=== PATIENT | male | born 1955 | race Two or more races ===

== ENCOUNTER 2020-09-13 11:08 | Emergency (ER) | payer MEDICAID, MEDICARE, OTHER ==
[~2020-09-13] VITALS: Ht 167.6 cm; Wt 86.7 kg
--- NOTE | 2020-09-13 11:30 | NUR ---
LATE ENTRY FOR 1130: PT PRESENTS TO ED WITH GRADUAL ONSET VISUAL LOSS TO LEFT EYE X 2 WEEKS. PT'S PRIMARY LANGUAGE IS ARMENIAN, ASSEMBLY LINE UPHOLSTERER UTILIZED FOR ASSESSMENT. FAMILY AT BEDSIDE. PT IS A&O, RESPS EVEN AND UNLABORED, NEUROLOGICALLY INTACT WITH NO DEFICITS, NO DRIFT, BILATERAL GRASP EQUAL. UPON VISUAL ACUITY ASSESSMENT, PT UNABLE TO READ ANYTHING ON EYE CHART WITH LEFT EYE. EDMD PRATT NOTIFIED. AWAITING MD ASSESSMENT AND ORDERS AT THIS TIME.
[2020-09-13] MEDS ORDERED: PROPARACAINE OPHTH 0.5%, 15ML ONE (11:53)
--- NOTE | 2020-09-13 12:00 | NUR ---
AT BEDSIDE FOR ASSESSMENT.
[2020-09-13 12:25] LABS: BASOPHILS % (AUTO) 1 % (0-1); EOSINOPHILS % (AUTO) 1 % (1-7); LYMPHOCYTES % (AUTO) 28 % (22-44); MEAN CORPUSCULAR HGB CONC 32.5 g/dL (33.2-36.2); MEAN PLATELET VOLUME 7.8 fL (7.4-10.4); MONOCYTES % (AUTO) 8 % (2-9); NEUTROPHILS % (AUTO) 63 % (42-75); PLATELET COUNT 189 x10^3/uL (130-400); RED BLOOD COUNT 5.15 x10^6/uL (4.38-5.82); RED CELL DISTRIBUTION WIDTH 15.3 % (9.4-14.8)
[2020-09-13] MEDS ORDERED: PROPARACAINE OPHTH 0.5%, 15ML EACHEYE ONE (12:30)
--- NOTE | 2020-09-13 12:34 | NUR ---
PT TO CT. NADN AT TRANSPORT.
[2020-09-13 12:37] LABS: ALBUMIN 3.8 g/dL (3.4-5.0); ANION GAP 4 mmol/L (5-15); CALCIUM 8.2 mg/dL (8.5-10.1); CHLORIDE 108 mmol/L (98-107); CREATININE 1.14 mg/dL (0.7-1.3); MD NO
--- NOTE | 2020-09-13 12:51 | NUR ---
PT BACK FROM CT, ALL MONITORS IN PLACE. PT A&O, RESPS EVEN AND UNLABORED, NADN. AWAITING CT READ AND DISPO.
--- NOTE | 2020-09-13 13:30 | NUR ---
ALEX PRATT AT BEDSIDE TO UPDATE PT WITH RESULTS AND POC. 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
--- NOTE | 2020-09-13 14:15 | NUR ---
PT GIVEN DC INSTRUCTIONS, EDUCATED TO FOLLOW UP WITH OPTHOMOLOGIST. PT A&O, RESPS EVEN AND UNLABORED, NSR ON CATERING SOUS CHEF WITH NO ECTOPY NOTED FOR DURATION OF ED STAY. PT AMBULATORY TO DC DESK WITH STEADY GAIT ACCOMPANIED BY FAMILY, ALL QUESTIONS ANSWERED.
[2020-09-13 14:31] VITALS: BP 150/103
[2020-09-13 14:43] LABS: HCT (SEDRATE) 44.3 % (39.2-51.8)
== END 2020-09-13 14:35 | disposition home or self-care (01) ==
LOC: ED 14:15
DX: H54.62 Unqualified visual loss, left eye, normal vision right eye (principal)
CPT/HCPCS: 36415; 70450; 80048; 82040; 85025; 85651; 86140; 99284

== ENCOUNTER 2020-11-18 11:55 | Emergency (ER) | payer MEDICARE ==
[~2020-11-18] VITALS: Ht 167.6 cm; Wt 85.2 kg
--- NOTE | 2020-11-18 12:17 | NUR ---
FIRST CONTACT W/ PT: COMPAINTS OF LOWER BACK PAIN "KIDNEY PAIN" X 3 DAYS. DENIES PAINFUL AND BLOODY URINATION. PT TO ROOM WITH STEADY GAIT. ATTACHED TO MONITORS AND POSTIONED TO COMFORT IN BED. VSS. CARTWRIGHT. DAUGHTER AT BEDSIDE. AWAITING ORDERS.
--- NOTE | 2020-11-18 12:35 | NUR ---
FAVIAN MURRELL TO BEDSIDE FOR EVALUATION
[2020-11-18] MEDS ORDERED: ONDANSETRON ODT 4 MG ONE (12:47)
[2020-11-18] MEDS ORDERED: CYCLOBENZAPRINE 10 MG TABLET ONE (12:48)
[2020-11-18] MEDS ORDERED: HYDROcodone/APAP 5/325 TABLET ONE (12:48)
[2020-11-18] MEDS ORDERED: KETOROLAC 30 MG/1 ML ONE (12:48)
[2020-11-18 13:00] LABS: BASOPHILS % (AUTO) 1 % (0-1); EOSINOPHILS % (AUTO) 2 % (1-7); LYMPHOCYTES % (AUTO) 26 % (22-44); MEAN CORPUSCULAR HEMOGLOBIN 28.5 pg (27.5-34.5); MEAN PLATELET VOLUME 7.9 fL (7.4-10.4); MONOCYTES % (AUTO) 8 % (2-9); NEUTROPHILS % (AUTO) 64 % (42-75); PLATELET COUNT 185 x10^3/uL (130-400); RED BLOOD COUNT 5.06 x10^6/uL (4.38-5.82); RED CELL DISTRIBUTION WIDTH 15.7 % (9.4-14.8)
[2020-11-18 13:05] LABS: MICROSCOPIC AUTO
[2020-11-18 13:09] LABS: ALANINE AMINOTRANSFERASE 31 U/L (12-78); ALBUMIN 3.6 g/dL (3.4-5.0); ANION GAP 3 mmol/L (5-15); CALCIUM 8.6 mg/dL (8.5-10.1); CHLORIDE 109 mmol/L (98-107); CREATININE 1.19 mg/dL (0.7-1.3)
[2020-11-18 13:11] LABS: ALKALINE PHOSPHATASE 76 U/L (45-117); BILIRUBIN,TOTAL 0.6 mg/dL (0.2-1.0)
--- NOTE | 2020-11-18 13:18 | NUR ---
PT TO CT.
[2020-11-18] MEDS ORDERED: CYCLOBENZAPRINE 10 MG TABLET PO ONE (13:30)
[2020-11-18] MEDS ORDERED: HYDROcodone/APAP 5/325 TABLET PO ONE (13:30)
[2020-11-18] MEDS ORDERED: KETOROLAC 30 MG/1 ML IM ONE (13:30)
[2020-11-18] MEDS ORDERED: ONDANSETRON ODT 4 MG PO ONE (13:30)
--- NOTE | 2020-11-18 14:05 | NUR ---
TASK RN: PT RESTING ON GURNEY. NADN. GAITAN.
[2020-11-18 14:56] VITALS: BP 114/68
== END 2020-11-18 15:27 | disposition home or self-care (01) ==
LOC: ED 15:20
DX: S39.012A Strain of muscle, fascia and tendon of lower back, initial encounter (principal); I10 Essential (primary) hypertension; E78.5 Hyperlipidemia, unspecified; Z90.49 Acquired absence of other specified parts of digestive tract; X58.XXXA Exposure to other specified factors, initial encounter; Y93.89 Activity, other specified; Y92.89 Other specified places as the place of occurrence of the external cause; Y99.8 Other external cause status
CPT/HCPCS: 36415; 74176; 80053; 81001; 83690; 85025; 87086; 96372; 99284; J1885; Q0162